=== PATIENT | female | born 1970 | race Caucasian/White ===

== ENCOUNTER 2016-12-11 13:46 | Emergency (ER) | payer BC ==
[2016-12-11 14:13] LABS: #Basophils 0.2 thou/uL (0.0-0.2); #Eosinphils 0.4 thou/uL (0.0-0.7); #Lymphocytes 3.8 thou/uL (1.20-3.40); #Monocytes 0.9 thou/uL (0.11-0.59); #Neutrophils 7.9 thou/uL (1.40-6.50); %Basophils 1.3 % (0.0-1.0); %Eosinophils 2.8 % (0.0-10.0); %Lymphocytes 28.9 % (21.0-51.0); %Monocytes 6.9 % (0.0-10.0); %Neutrophils 60.1 % (42.0-75.0); Mean Corpuscular HGB CONC 33.4 g/dL (32.0-36.0); Mean Corpuscular Hemoglobin 29.7 pg (27.0-31.0); Mean Corpuscular Volume 88.8 fl (81.0-99.0); Mean Platelet Volume 5.6 fL (7.4-10.4); Platelet Count 394 thou/uL (130-400); Red Blood Cell (RBC) Count 5.06 mill/uL (4.20-5.40); White Blood Cell (WBC) Count 13.2 thou/uL (4.8-10.8)
[2016-12-11 14:29] LABS: ALT (SGPT) 20 U/L (8-55); AST (SGOT) 16 U/L (5-34); Albumin 4.5 g/dL (3.5-5.0); Alkaline Phosphatase 79 U/L (40-150); Anion Gap 14 mmol/L (10-20); BUN (Urea Nitrogen) 11 mg/dL (7.0-18.7); Bilirubin, Total 0.9 mg/dL (0.2-1.2); Calc. Creatinine Clearance 0 mL/min (70-130); Calcium 9.8 mg/dL (7.8-10.44); Carbon Dioxide 27 mmol/L (22-29); Chloride 100 mmol/L (98-107); Estimated GFR-MDRD 88; Globulin 3.7 g/dL (2.4-3.5); Glucose 94 mg/dL (70-105); Potassium 4.2 mmol/L (3.5-5.1); Protein, Total 8.2 g/dL (6.0-8.3); Sodium 137 mmol/L (136-145)
[2016-12-11 14:30] LABS: Bilirubin Negative (Negative); Blood, Urine Negative (Negative); Clarity Clear (Clear); Glucose, Urine (Dipstick) Negative (Negative); Leukocyte Negative (Negative); Nitrite Negative (Negative); Protein, Urine (Dipstick) Trace mg/dL (Neg-Trace); Specific Gravity, Urine 1.015 (1.005-1.030); Urobilinogen 0.2 mg/dL (0.2-1.0)
--- NOTE | 2016-12-11 15:29 | RAD ---
PORTABLE CHEST 12/11/2016 An AP portable film at 1410 hours shows a normal size heart and clear lungs. No infiltrate or effus ion was seen. The trachea is midline. There is no sign of pneumonia. IMPRESSION: No acute findings. POS: HOME
== END 2016-12-11 15:41 | disposition home or self-care (01) ==
LOC: BURERS 13:46
DX: R55 Syncope and collapse (principal); E03.9 Hypothyroidism, unspecified; I10 Essential (primary) hypertension; E78.00 Pure hypercholesterolemia, unspecified; Z79.899 Other long term (current) drug therapy
CPT/HCPCS: 36416; 71010; 80053; 81003; 84443; 85025; 93005; 94760

== ENCOUNTER 2019-06-29 19:10 | Emergency (ER) | payer BC ==
[2019-06-29 20:20] LABS: Bilirubin Negative (Negative); Blood, Urine Negative (Negative); Clarity Clear (Clear); Glucose, Urine (Dipstick) Negative (Negative); Leukocyte Negative (Negative); Nitrite Negative (Negative); Protein, Urine (Dipstick) Negative (Neg-Trace); Urobilinogen 0.2 mg/dL (Less than 2)
[2019-06-29] MEDS ORDERED: Clindamycin 150 MG CAP ONE (20:30)
[2019-06-29 20:47] LABS: #Basophils 0.2 thou/uL (0.0-0.2); #Eosinphils 0.1 thou/uL (0.0-0.7); #Lymphocytes 1.9 thou/uL (1.20-3.40); #Monocytes 1.1 thou/uL (0.11-0.59); #Neutrophils 8.2 thou/uL (1.40-6.50); %Basophils 1.9 % (0.0-1.0); %Eosinophils 1.3 % (0.0-10.0); %Lymphocytes 16.6 % (21.0-51.0); %Monocytes 9.8 % (0.0-10.0); %Neutrophils 70.4 % (42.0-75.0); Mean Corpuscular HGB CONC 32.6 g/dL (32.0-36.0); Mean Corpuscular Hemoglobin 28.6 pg (27.0-31.0); Mean Corpuscular Volume 87.8 fL (78.0-98.0); Platelet Count 394 thou/uL (130-400); RBC Distribution Width 13.1 % (11.5-14.5); Red Blood Cell (RBC) Count 4.55 mill/uL (4.20-5.40); White Blood Cell (WBC) Count 11.6 thou/uL (4.8-10.8)
[2019-06-29 20:58] LABS: ALT (SGPT) 358 U/L (8-55); AST (SGOT) 371 U/L (5-34); Albumin 4.3 g/dL (3.5-5.0); Alkaline Phosphatase 180 U/L (40-110); Anion Gap 17 mmol/L (10-20); BUN (Urea Nitrogen) 8 mg/dL (7.0-18.7); Bilirubin, Total 2.2 mg/dL (0.2-1.2); Calc. Creatinine Clearance 0 mL/min (70-130); Calcium 9.2 mg/dL (7.8-10.44); Carbon Dioxide 25 mmol/L (22-29); Chloride 100 mmol/L (98-107); Estimated GFR-MDRD Greater than 90; Globulin 3.2 g/dL (2.4-3.5); Glucose 105 mg/dL (70-105); Potassium 4.1 mmol/L (3.5-5.1); Protein, Total 7.5 g/dL (6.0-8.3); Sodium 138 mmol/L (136-145)
--- NOTE | 2019-06-29 21:50 | RAD ---
PORTABLE CHEST: 06/29/19 An AP portable film at 2011 is compared with an 12/11/16 study. The heart remains normal in size and the lungs are clear. There has been no adverse interval change. The trachea is midline. IMPRESSION: No acute thoracic findings. POS: HOME
[2019-06-30 12:18] LABS: HBCM Index 0.06 S/CO (0-0.79); HBSAg Index 0.24 S/CO (0-0.99); Hep A IgM AB Non-Reactive (NonReactive); Hep B Surf Ag Non-Reactive S/CO (NonReactive); Hep C IgG Ab Non-Reactive (NonReactive); Hep C Index 0.09 S/CO (0-0.79); Hepatitis B Core IgM Abs Non-Reactive (NonReactive)
== END 2019-06-29 21:43 | disposition home or self-care (01) ==
LOC: BURERS 19:10
DX: B17.9 Acute viral hepatitis, unspecified (principal); T50.0X5A Adverse effect of mineralocorticoids and their antagonists, initial encounter; T50.995A Adverse effect of other drugs, medicaments and biological substances, initial encounter; I10 Essential (primary) hypertension; E78.00 Pure hypercholesterolemia, unspecified; E03.9 Hypothyroidism, unspecified; F41.9 Anxiety disorder, unspecified; F32.9 Major depressive disorder, single episode, unspecified; F43.10 Post-traumatic stress disorder, unspecified; Z79.899 Other long term (current) drug therapy; Z79.84 Long term (current) use of oral hypoglycemic drugs
CPT/HCPCS: 36415; 71045; 80053; 80074; 81003; 84484; 85025; 93005; 94760

== ENCOUNTER 2019-06-30 02:17 | Emergency (ER) | payer BC ==
[2019-06-30] MEDS ORDERED: Sodium Chloride 0.9% 100 ML ONE (03:08)
[2019-06-30] MEDS ORDERED: Ampicillin/Sulbactam 3 GM VIAL ONE (03:08)
[2019-06-30] MEDS ORDERED: Fentanyl 100 MCG/2 ML VIAL ONE (03:09)
[2019-06-30] MEDS ORDERED: Ondansetron PF 4 MG/2 ML Vial ONE (03:10)
[2019-06-30 03:16] LABS: #Basophils 0.2 thou/uL (0.0-0.2); #Eosinphils 0.1 thou/uL (0.0-0.7); #Lymphocytes 1.9 thou/uL (1.20-3.40); #Monocytes 1.3 thou/uL (0.11-0.59); %Basophils 1.3 % (0.0-1.0); %Eosinophils 1.1 % (0.0-10.0); %Lymphocytes 14.8 % (21.0-51.0); %Monocytes 10.6 % (0.0-10.0); %Neutrophils 72.2 % (42.0-75.0); Hemoglobin 13.5 g/dL (12.0-16.0); Mean Corpuscular HGB CONC 32.2 g/dL (32.0-36.0); Mean Corpuscular Hemoglobin 28.2 pg (27.0-31.0); Mean Corpuscular Volume 87.6 fL (78.0-98.0); Mean Platelet Volume 6.1 fL (7.4-10.4); Platelet Count 447 thou/uL (130-400); RBC Distribution Width 13.2 % (11.5-14.5); Red Blood Cell (RBC) Count 4.79 mill/uL (4.20-5.40); White Blood Cell (WBC) Count 12.5 thou/uL (4.8-10.8)
[2019-06-30 03:24] LABS: BHCG - Serum Negative (NEGATIVE); Pregs Control Background? CLEAR/WHITE (CLR/WHITE); Pregs Control Bar Appear? YES (CONTROL BAR)
[2019-06-30 03:31] LABS: ALT (SGPT) 493 U/L (8-55); AST (SGOT) 435 U/L (5-34); Albumin 4.7 g/dL (3.5-5.0); Alkaline Phosphatase 225 U/L (40-110); Anion Gap 19 mmol/L (10-20); BUN (Urea Nitrogen) 7 mg/dL (7.0-18.7); Bilirubin, Total 3.3 mg/dL (0.2-1.2); Calc. Creatinine Clearance 0 mL/min (70-130); Calcium 9.4 mg/dL (7.8-10.44); Carbon Dioxide 25 mmol/L (22-29); Chloride 99 mmol/L (98-107); Estimated GFR-MDRD 88; Globulin 3.5 g/dL (2.4-3.5); Glucose 124 mg/dL (70-105); Lipase 21 U/L (8-78); Potassium 3.8 mmol/L (3.5-5.1); Protein, Total 8.2 g/dL (6.0-8.3); Sodium 139 mmol/L (136-145)
--- NOTE | 2019-06-30 08:17 | CT ---
PRELIMINARY REPORT/[facility]/EMERGENCY AFTER HOURS PROCEDURE: CT ABDOMEN PELVIS W CON History: RUQ ABD PAIN THAT STARTED LAST NIGHT, PT STILL HAS GALLBLADDER Comparison: None Findings: Lung bases are clear. Gallbladder is mildly distended. No biliary ductal dilatation. Punctate gallstone suspected in the gallbladder fundus. Consider ultrasound for further characterization. Liver, spleen, pancreas and adrenal glands are unremarkable. Subcentimeter left nephrolithiasis. No hydronephrosis. No definite ureteral calculi. Urinary bladder is unremarkable. Status post hysterectomy. No free air or bowel obstruction. Appendix is normal in caliber and noninflammatory. Probable prominence of the ascending colon, hepatic flexure. Minimal fluid in the proximal colon. No evidence of acute diverticulitis. Abdominal aorta is normal in caliber. Mild osseous degenerative changes, without acute osseous abnormality. There is grade 1 anterolisthe sis of L5 on S1 with bilateral L5 pars defects. Impression: 1. No CT evidence of acute appendicitis, bowel obstruction or acute diverticulitis. Mild wall promi nence of the ascending colon. Correlate for colitis in the appropriate clinical setting. 2. Distended gallbladder. No biliary ductal dilatation. Faint cholelithiasis suspected. If concer n persists for gallbladder etiology of pain, consider ultrasound. 3. Nonobstructing left renal calculus. 4. Additional findings, as above. ELECTRONICALLY SIGNED BY: Tan Perez DO Jun 30, 2019 4:32:53 AM CDT This report is intended for review by the ordering physician only, in accordance of law. If you recei ve this report in error, please call [facility] at [phone]. FINAL REPORT CT ABDOMEN AND PELVIS WITH CONTRAST: Date: 06/30/[address] of the abdomen and pelvis was done after giving IV contrast. The lung bases are clear. The liver, spleen, pancreas, adrenal glands, and abdominal aorta show no ac jackson findings. The gallbladder is moderately distended and appears to have some gallstones in the fund us. The kidneys show no mass or hydronephrosis, but there is a 7.0 mm nonobstructing calculus in the left kidney. There is no distention of bowel, sign of diverticulitis, or appendicitis. The [facility] reader wondered about prominence of the thickness of the right colon, though I think this finding is equivo eloy at best. There is no finding of free air or free fluid in the abdomen. CT of the pelvis showed no pelvic masses, fluid collections, or inflammatory changes. There was perhaps a few more lymph nodes in the mesentery than one often sees, but there was not enou gh, or large enough, to confidently diagnose mesenteric adenitis. Finally, there is Grade I anterolisthesis of L5 on S1 with bilateral pars defects. IMPRESSION: 1. Moderately distended gallbladder with probable gallstones. Ultrasound should be done for confirma tion. 2. No evidence of acute diverticulitis or appendicitis. Possible slight thickening of the wall of th e right colon, an equivocal finding at best. 3. 7.0 mm nonobstructing calculus in the left kidney. 4. Grade I anterolisthesis of L5 on S1 with spondylolysis. There is also a degenerated disc at this level. Report in agreement with preliminary reading by [facility]. POS: HOME
[2019-06-30] MEDS ORDERED: Iopamidol 370 76% 100 ML VIAL ONE (09:16)
== END 2019-06-30 04:13 | disposition short-term general hospital (02) ==
LOC: BURERS 02:17
DX: R10.11 Right upper quadrant pain (principal); R79.89 Other specified abnormal findings of blood chemistry; I10 Essential (primary) hypertension; E78.00 Pure hypercholesterolemia, unspecified; E03.9 Hypothyroidism, unspecified; F41.9 Anxiety disorder, unspecified; F32.9 Major depressive disorder, single episode, unspecified; F43.10 Post-traumatic stress disorder, unspecified; Z79.899 Other long term (current) drug therapy
CPT/HCPCS: 74177; 80053; 83605; 83690; 84484; 84703; 85025; 94760; 96365; 96375; J0295; J2405; J3010; J3490; Q9967

== ENCOUNTER 2021-07-25 16:11 | Emergency (ER) | payer BC, OTHER ==
[2021-07-25] MEDS ORDERED: Fluorescein Opthalmic Strip ONE (16:36)
[2021-07-25] MEDS ORDERED: Boostrix 0.5 ML (Tdap) VIAL ONE (16:55)
== END 2021-07-25 17:39 | disposition home or self-care (01) ==
LOC: BURERS 16:11
DX: S05.01XA Injury of conjunctiva and corneal abrasion without foreign body, right eye, initial encounter (principal); W54.8XXA Other contact with dog, initial encounter
CPT/HCPCS: 70480; 90471; 90715